=== PATIENT | male | born 1965 | race Caucasian/White ===

== ENCOUNTER 2019-10-28 10:56 | Inpatient (IN) ==
--- OUTSIDE RECORDS SUMMARY | 2019-10-28 11:00 | External Medical Summary | Continuity of Care Document ---
:1965 Author Name Konrad M.D. 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 Refills: 0 Ventolin HFA 108 (90 Base) MCG/ACT Inhal ation Aerosol Solution; INHALE 2 PUFFS EVERY 4-6 HOURS NEEDED. , M.D. Refills: 0 PriLOSEC 20 MG CPDR; TAKE 1 CAPSULE DAILY. , M.D. Refills: 0 Singulair 10 MG Oral Tablet; TAKE 1 TABLET DAILY. , M.D. Refills: 0 Nasonex 50 MCG/ACT Nasal Suspension; INSTILL 2 SQUIRT Each Nostril Once Daily , M.D. Refills: 0 Procedures Procedures not documented Immunizations Immunizations not documented Family History Unknown Family Member Family history of No Significant Family Status: Active Comments: Family History History Social History - Smoking Status Never smoked tobacco Plan of Treatment Planned Observations Planned Goals not documented Results No Known Results Results not documented
[2019-10-28 11:28] LABS: Basophils # (auto) 0.03 K/uL (0-0.2); Basophils % (auto) 0.5 %; Eosinophils # (auto) 0.27 K/uL (0-0.5); Eosinophils % (auto) 4.4 %; Hematocrit (blood only) 34.9 % (42-52); Hemoglobin 10.8 g/dL (14.0-18.0); Immature Granulocytes # (auto) 0.02 K/uL (0.00-0.02); Immature Granulocytes % (auto) 0.3 %; Lymphocytes # (auto) 1.13 K/uL (1.2-3.4); Lymphocytes % (auto) 18.3 %; Mean Corpuscular Hemoglobin 22.3 pg (25-34); Mean Corpuscular Hgb Conc 30.9 g/dL (32-36); Mean Platelet Volume 8.5 fL (7.4-10.4); Monocytes # (auto) 0.28 K/uL (0.11-0.59); Monocytes % (auto) 4.5 %; Neutrophils # (auto) 4.43 K/uL (1.4-6.5); Platelet Count 599 K/uL (130-400); RDW Coefficient of Variation 17.9 % (11.5-14.5); Red Blood Count 4.85 M/uL (4.7-6.1); White Blood Count 6.16 K/uL (4.8-10.8)
--- NOTE | 2019-10-28 11:32 | XRay Report ---
XR chest 1V portable CLINICAL HISTORY: 53 years-old Male presenting with Chest Pain. TECHNIQUE: Portable upright AP view of the chest was obtained. COMPARISON: Outside chest CT from 10/24/2019 and chest x-rays from 10/20/2019 and 04/22/2019. FINDINGS: Cardiomediastinal silhouette normal. Redemonstration of the right middle lobe mass with surrounding o pacity, which is stable to slightly increased from prior. Lower lung volume on the right. Left lung a nd pleural space clear. Osseous structures normal. Hiatal hernia noted. IMPRESSION: 1. Stable to slightly increased infiltrate surrounding the right middle lobe mass. This is concernin g for postobstructive pneumonia. ACT 112: Negative or not required by law. Electronically signed by: Pato Hernandez M.D. 10/28/2019 11:31 AM
[2019-10-28] MEDS ORDERED: SODIUM CHLORIDE 0.9% 1000ML 1,000 ML IV ONE (11:36)
[2019-10-28 11:45] LABS: Alanine Aminotransferase 48 U/L (12-78); Albumin Level 2.9 gm/dl (3.4-5.0); Aspartate Aminotransferase 22 U/L (15-37); BUN Creatinine Ratio 8.3 (10-20); Blood Urea Nitrogen 9 mg/dl (7-18); Calcium 9.4 mg/dl (8.5-10.1); Carbon Dioxide 26 mmol/L (21-32); Chloride 106 mmol/L (98-107); Creatinine Clr Calc Pharmacy 87.1 ml/min; Est GFR (African American) 92.4; Est GFR (Non-African American) 79.7; Glucose 151 mg/dl (70-99); Lipase 91 U/L (73-393); Potassium 3.3 mmol/L (3.5-5.1); Sodium 137 mmol/L (136-145)
[2019-10-28 11:50] LABS: Albumin Globulin Ratio 0.6 (0.9-2); Alkaline Phosphatase 90 U/L (45-117); Bilirubin,Total 0.2 mg/dl (0.2-1); Globulin 4.5 gm/dl (2.5-4.0); Total Protein 7.4 gm/dl (6.4-8.2); Troponin I < 0.015 ng/ml (0-0.045)
[2019-10-28 11:54] LABS: Microcytosis Present
[2019-10-28 11:57] LABS: INR 1.1 (0.9-1.1); Partial Thromboplastin Ratio 1.1; Partial Thromboplastin Time 29.6 Seconds (21.0-31.0); Prothrombin Time 11.9 Seconds (9.0-12.0)
[2019-10-28] MEDS ORDERED: VANCOMYCIN HCL 1,750 MG in SODIUM CHLORIDE 0.9% 500 ML IV ONE (12:22)
[2019-10-28] MEDS ORDERED: PIPERACILL/TAZOBAC CONSULT ACTIVE PRN (12:22)
[2019-10-28] MEDS ORDERED: PIPERACILLIN/TAZOBACTAM 4.5 GM/120 ML BAG IV ONE (12:22)
[2019-10-28] MEDS ORDERED: VANCOMYCIN CONSULT ACTIVE PRN (12:22)
[2019-10-28 12:38] LABS: Influenza A virus by PCR Neg for Influ A (Neg); Influenza B virus by PCR Neg for Influ B (Neg)
[2019-10-28] MEDS ORDERED: ALBUTEROL 0.083% NEBU SOLN 3 ML VIAL NEB STA (12:40)
[2019-10-28] MEDS ORDERED: POTASSIUM CHLORIDE 20 MEQ TABCR PO STA (12:46)
--- NOTE | 2019-10-28 12:52 | History & Physical Report ---
Date of Service October 28, 2019 Assessment & Plan (1) Mass of middle lobe of right lung: (2) Pneumonia: This is a 53-year-old male who has significant PMH of asthma, allergic rhinitis and GERD who presents to ED at the recommendation of his PCP secondary to abnormal chest CAT scan. CT Chest 10/23: 1. An ill-defined hypodense mass in the right middle lobe measuring 5.0 x 3.4 cm. The differential diagnosis includes a pulmonary mass or an abscess. Further evaluation with a PET-CT is suggested. 2. Adjacent large right middle lobe pulmonary consolidation, favoring infection. 3. Trace right pleural effusion. 4. Multiple mildly enlarged mediastinal and right hilar lymph nodes, increased in size since the prior chest CT dated 05/29/2011, may represent metastases or reactive lymphadenopathy depending on the etiology of the finding in the right middle lobe. No signs of SIRS/SEPSIS per current CMS guidelines. LACTIC Acid 2.7. Procal WNL, WBC WNL RML Mass with concerning findings of post obstructive PNA with mediastinal and hilar adenopathy DDx: malignancy, lung abscess, empyema, rheumatologic process admit to PCU IV antibiotics Vanco/zosyn Sputum culture as outpt growing moderate gram-positive cocci, gram-negative and gram-positive rods MRSA pending NPO until seen and eval by pulm consult pulmonology - PCP Dr. Flores spoke with Dr. Ruvalcaba who discussed possible BAL IVF 125cc/hr (3) Lactic acidosis: LA 2.7 pt is normotensive, gap 5.0 continue IVF, repeat (4) Hypokalemia: replete with 40meq x 1 now repeat in a.m. (5) Microcytic anemia: H&H 10.8 and 34.9 No signs or symptoms of bleeding Indices revealed microcytosis Iron studies pending, patient states he has been told he has been he has been iron deficient in past last colonoscopy 2016 revealed diverticulosis no polyps check FOBT (6) Thrombocytosis: possibly reactive in setting of microcytic anemia vs infectious process, vs m alignancy Platelet count [address] 02/2019 was 268 check peripheral smear (7) Asthma: no acute exac albuterol prn continue theophylline, pt has been on since, "10 yrs old" (8) GERD (gastroesophageal reflux disease): continue PPI (9) DVT prophylaxis: SCD/TEDS consider chemical prophylaxis if hospitalized > 24hr Disposition: admit to PCU Follow up: PCP Dr. Flores Pt was seen and examined in collaboration with Dr. Leger, please see addendum History of Present Illness Chief Complaint: Referred by PCP Due to abn CT of chest. Primary Care Provider: Duncan Flores MD This is a 53-year-old male who has significant PMH of asthma, allergic rhinitis and GERD who presents to ED at the recommendation of his PCP secondary to abnormal chest CAT scan. Over the past 2 weeks patient has been experiencing fever, productive purulent cough, THORNTON and conversational dyspnea. Overall appetite has been decreased and has approximately lost 10 pounds over the past 2 weeks. He denies any chills, sweats, lightheadedness, dizziness, chest pain, palpitations, hemoptysis, nausea, vomiting, abdominal pain, changes bowel or urinary habits. He initially was seen by PA at outpatient office. Symptoms initially felt to be secondary to viral and he was encouraged to use albuterol as needed. Albuterol does help temporarily. He then followed up with PCP and started on azithromycin for continued symptoms. He was scheduled for chest CT on 10/23 which revealed an ill-defined hypodense mass in the right middle lobe measuring 5 x 3.4 cm. Also adjacent large right middle lobe consolidation favoring infection. Mildly enlarged mediastinal and right hilar lymph nodes noted. He was then started on Levaquin and additionally Augmentin. Arlin did reach out to ask a doc pulmonology in [place]. Recommendation was for bronchoscopy however patient request to see [facility] pulmonology. Dr. Flores spoke with Dr. Ruvalcaba who recommended ED evaluation with admission. In ED patient remained hemodynamically stable saturating well on room air. H&H around 10.8 and 34.9 with decreased MCV and MCH concerning for macrocytosis, platelet count 599, WBC 6.16, K3.3, BUN 9, creatinine 1.06, glucose 151, lactate 2.7, troponin WNL and negative for influenza. Chest x-ray revealed stable to slightly increased infiltrate surrounding the right middle lobe mass concerning for postobstructive pneumonia. In ED he was started on IV vancomycin and Zosyn and received 1 L fluid bolus. Allergies Allergy/AdvReac Type Severity Reaction Status Date / Time No Known Allergies Allergy Unverified 10/28/19 11:56 Home Medications Home Medications Medication Instructions Recorded Confirmed Type acetaminophen [Tylenol Extra 500 mg PO Q6H PRN 10/28/19 10/28/19 History Strength] albuterol sulfate [Ventolin HFA] 2 puff INHALATION QID PRN 10/28/19 10/28/19 History amoxicillin-pot clavulanate 1 tab PO BID 10/28/19 10/28/19 History cetirizine [Zyrtec] 10 mg PO QAM 10/28/19 10/28/19 History levofloxacin 750 mg PO QAM 10/28/19 10/28/19 History montelukast 10 mg PO QAM 10/28/19 10/28/19 History vvwndjwh-egc-byiuo-vit K-lycop 1 tab PO QAM 10/28/19 10/28/19 History [Men's One Daily] omeprazole 20 mg PO QAM 10/28/19 10/28/19 History theophylline 400 mg PO BID 10/28/19 10/28/19 History Past Med/Surg History Medical History (Updated 10/28/19 @ 14:30 by Rakan Castle MD) Allergic rhinitis Asthma GERD (gastroesophageal reflux disease) Surgical History (Updated 10/28/19 @ 12:58 by Марина Beatty PA-C) History of colonoscopy Family History (Updated 10/28/19 @ 12:59 by Марина Beatty PA-C) Father Prostate cancer Mother Rheumatoid arthritis Brother Dyslipidemia Social History (Updated 10/28/19 @ 13:00 by Марина Beatty PA-C) Preferred Language: Bulgarian Communication Ability: Effective Cook Ship Required: No Beliefs That Will Affect Care: None marital status: Single Current Living Situation: Alone Other Information That Helps Us Care for You: No Feels Safe at Home: Yes Safety Concerns: Feels Safe At This Time Smoking Status: Never smoker Do You Dip or Chew Tobacco: No ; Second Hand Exposure: No ; Tobacco Cessation Education Requested by Patient: No Hx Alcohol Use: Yes Alcohol type: other Hx Substance Use: No Review of Systems Review of Systems: All systems reviewed & are unremarkable except as noted in HPI & below Physical Exam Physical Exam: Constitutional: WD/WN, M vitals as above, NAD, sitting up in bed, pleasant, conversing dyspnea Head: Normocephalic, Atraumatic Eyes: PERRL, conjunctivae normal, anicteric sclerae ENMT: external ear and nose normal, oropharynx normal Neck: trachea midline, no thyromegaly normal visual inspection Respiratory: normal respiratory effort, lungs clear to auscultation, no wheeze, rales, rhonchi. Normal insp/exp effort, no accessory muscle use Cardiovascular: RRR, no murmur, no edema Vessels: no JVD or carotid bruit Chest: normal inspection of chest Abdomen: normal bowel sounds, soft, nontender, no hepatosplenomegaly Musculoskeletal: no cyanosis or clubbing, extremities motor strength 5/5 Skin: no rashes, warm and dry normal turgor Neurologic: PERRL, EOMI, accommodation nl, no face palsy, no dysarthria CN's II-XI intact bilaterally and moves all extremities Psychiatric: A+Ox3, euthymic affect Lymphatic: no cervical or axillary lymphadenopathy : deferred Results & Data Vital Signs (Past 12 Hours) Vital Signs Temp Pulse Pulse Resp BP BP Pulse Ox 10/28/19 12:30 91 H 15 136/82 100 10/28/19 12:11 37.0 C 88 14 138/78 100 10/28/19 10:58 36.7 C 98 H 16 129/79 99 Laboratory Results Short CBC 10/28/19 10/28/19 Range/Units 11:16 11:50 WBC 6.16 (4.8-10.8) K/uL Hgb 10.8 L (14.0-18.0) g/dL Hct 34.9 L (42-52) % Plt Count 599 H (130-400) K/uL Lactate 2.7 H* (0.4-2.0) mmol/L BMP 10/28/19 11:16 Sodium 137 Potassium 3.3 L Chloride 106 Carbon Dioxide 26 BUN 9 Creatinine 1.06 Glucose 151 H Calcium 9.4 Cardiac Enzymes 10/28/19 Range/Units 11:16 Troponin I < 0.015 (0-0.045) ng/ml Liver Function 10/28/19 Range/Units 11:16 Total Bilirubin 0.2 (0.2-1) mg/dl AST 22 (15-37) U/L ALT 48 (12-78) U/L Alkaline Phosphatase 90 (45-117) U/L Albumin 2.9 L (3.4-5.0) gm/dl Diagnostic Findings CT Chest 10/24/19: IMPRESSION 1. An ill-defined hypodense mass in the right middle lobe measuring 5.0 x 3.4 cm. The differential diagnosis includes a pulmonary mass or an abscess. Further evaluation with a PET-CT is suggested. 2. Adjacent large right middle lobe pulmonary consolidation, favoring infection. 3. Trace right pleural effusion. 4. Multiple mildly enlarged mediastinal and right hilar lymph nodes, increased in size since the prior chest CT dated 05/29/2011, may represent metastases or reactive lymphadenopathy depending on the etiology of the finding in the right middle lobe. CXR: IMPRESSION: 1. Stable to slightly increased infiltrate surrounding the right middle lobe mass. This is concerning for postobstructive pneumonia. Medications Administered Vancomycin HCl 1,750 mg/ (Sodium Chloride) 535 mls @ 200 mls/hr IV NOW ONE Stop: 10/28/19 15:02 Last Admin: 10/28/19 12:55 Dose: 200 mls/hr Documented by: [id number] Sodium Chloride (Nss 1000ml) 1,000 mls @ 125 mls/hr IV .Q8H DERIK Stop: 11/27/19 12:44 Last Admin: 10/28/19 12:56 Dose: 125 mls/hr Documented by: [id number] Discontinued Medications Albuterol (Ventolin 0.083% 2.5mg/3ml) 2.5 mg NEB NOW STA Stop: 10/28/19 12:41 Last Admin: 10/28/19 12:51 Dose: 2.5 mg Documented by: [id number] Sodium Chloride (Nss 1000ml) 1,000 mls @ 999 mls/hr IV .Q1H1M ONE Stop: 10/28/19 12:36 Last Infusion: 10/28/19 12:56 Dose: 0 mls/hr Documented by: [id number] Admin: 10/28/19 11:53 Dose: 999 mls/hr Documented by: [id number] Piperacillin Sod/Tazobactam Sod (Zosyn) 4.5 gm in 120 mls @ 240 mls/hr IV NOW ONE Stop: 10/28/19 12:51 Last Admin: 10/28/19 12:30 Dose: 240 mls/hr Documented by: [id number] Potassium Chloride (Klor-Con M20) 40 meq PO NOW STA Stop: 10/28/19 12:47 Last Admin: 10/28/19 12:55 Dose: 40 meq Documented by: [id number] ECG Rate (beats per minute): 94 Rhythm: normal sinus Findings: + PVC Code Status & VTE Plan Code Status Full Code VTE Prophylaxis Plan VTE Prophylaxis will be ordered: Yes Supervising Physician Co-Signing Physician Notes Attending addendum: The patient was seen and examined in telemetry unit He was admitted from PCPs office with complaints of fever, sweating, shortness of breath and productive yellowish phlegm which has been going on for about more than 2 weeks. No history of hemoptysis He has asthma and GERD has past medical history and he is a non-smoker He has had a remote history of pneumonia affecting the left upper lobe in [address] scan with contrast suggested that could be malignant with left hilar and mediastinal lymphadenopathy. Fortunately repeat CAT scan without contrast 1 03/2011 did show only minimal residual consolidation likely representing scaring. He has been complaining of cough with productive yellow phlegm, shortness of breath and fever with sweating for more than 2 weeks.He finished a course of antibiotic as an outpatient with Levaquin and subsequent addition of Augmentin as advised by tape librarian from [place] and he was evaluated by PCP last Sunday and at that time he was noted to have an abnormal CAT scan and he was admitted to telemetry unit for continuation of care and possible bronchoscopy for the right middle lobe lesion. A CAT scan with contrast did show ill-defined hypodense mass in the right middle lobe measuring 5 x 3.4 cm. Adjacent large right middle lobe pulmonary consolidation favoring infection, trace right pleural effusion and multiple mildly enlarged mediastinal and right hilar lymph nodes increased in size since prior CT of the chest dated 2010. He is admitted with postobstructive pneumonia//pulmonary abscess and to rule out possibility of malignancy. On examination Minimal shortness of breath at rest Denies any pain Hemodynamically stable Chest-bronchial breath sounds with crackles right lung Heart-S1-S2, regular Abdomen-benign Extremities-negative for any edema [employer]-alert, awake and oriented x3. No focal sensory or motor deficit His labs and imaging studies reviewed Started with intravenous vancomycin and Zosyn Appreciate pulmonary input and recommendation Agree with assessment and plan as outlined above by Nikos Leger
[2019-10-28] MEDS: SODIUM CHLORIDE 0.9% 1000ML 1,000 ML IV SCH ×2 (12:56→20:25)
--- NOTE | 2019-10-28 13:03 | Emergency Department Note ---
ED Provider Note NAME: LATONIA DAVIES AGE: 53 SEX: M ARRIVES VIA: Walk-In INFORMANT: Patient, ED PROVIDER(S): Nito Arellano MD CHIEF COMPLAINT: Cough and fevers/referred for abnormal CT scan of the chest. MEDICAL DECISION MAKING: The patient is a pleasant 53-year-old gentleman with a past medical history of acid reflux, asthma who presents emergency department for evaluation and admission for recent CT findings that are suggestive of pulmonary abscess versus mass which occurs in the setting of having cough congestion and feverishness over the past 10 days initially treated with azithromycin followed by Levaquin and now having started Augmentin yesterday. The patient reports he had a CT scan performed on Sunday and results were reviewed today and he was referred to the emergency department. Patient denies any history of similar episodes or k nown risk factors that would put him at risk for abscess development. Specifically he denies any history of immune compromise. He denies any travel to high risk areas of novel coronavirus or contact with any patients with lab confirmed novel coronavirus. On arrival the patient is in no acute distress, afebrile stable vital signs. He has diminished breath sounds in the right lung roldan and is otherwise clear. X-ray redemonstrates the patient's right middle lobe mass with increased infiltrate surrounding. WBC within normal limits., Platelets 599, likely reactive. H/H 10.8/34.9 without prior values for comparison. Chemistry without acidosis. However lactate 2.7. Potassium 3.3 electrolytes and LFTs otherwise unremarkable. Troponin negative/undetectable. Flu negative. Blood cx were drawn and patient was ordered for initial Zosyn and vancomycin given recent sputum cultures growing gram-positive cocci as well as gram-negative bacilli, in the [employer] system. [facility], working with Dr. Leger, [facility] hospitalist, who will evaluate the patient for admission. Triage Nursing notes reviewed and agree them. Additional history obtained from [employer] EMR Prior medical records reviewed Vital Signs: reviewed and remarkable for no significant abnormalities Differential diagnosis: Viral syndrome, otitis, pharyngitis, pneumonia, influenza, meningitis, urinary tract infection, sepsis, bacteremia, as well as other pathologies. ER treatment provided: See Below. Diagnostics interpreted by me: ECG: Sinus rhythm with occasional PVCs, 94 bpm, no ST elevation or depression, QTC 422, QRS 98. Cardiac Monitoring: Sinus rhythm, occasional PVCs, 94 bpm. Laboratory studies: XR chest 1V portable CLINICAL HISTORY: 53 years-old Male presenting with Chest Pain. TECHNIQUE: Portable upright AP view of the chest was obtained. COMPARISON: Outside chest CT from 10/24/2019 and chest x-rays from 10/20/2019 and 04/22/2019. FINDINGS: Cardiomediastinal silhouette normal. Redemonstration of the right middle lobe mass with surrounding opacity, which is stable to slightly increased from prior. Lower lung volume on the right. Left lung and pleural space clear. Osseous structures normal. Hiatal hernia noted. IMPRESSION: 1. Stable to slightly increased infiltrate surrounding the right middle lobe mass. This is concerning for postobstructive pneumonia. Imaging studies: See below Consultation(s): None HPI: The patient is a pleasant 53-year-old gentleman with a past medical history of acid reflux, asthma who presents emergency department for evaluation and admission for recent CT findings that are suggestive of pulmonary abscess versus mass which occurs in the setting of having cough congestion and feverishness over the past 10 days initially treated with azithromycin followed by Levaquin and now having started Augmentin yesterday. The patient reports he had a CT scan performed on Sunday and results were reviewed today and he was referred to the emergency department. Patient denies any history of similar episodes or known risk factors that would put him at risk for abscess development. Specifically he denies any history of immune compromise. He denies any travel to high risk areas of novel coronavirus or contact with any patients with lab confirmed novel coronavirus. ROS: See above HPI for pertinent positives & negatives. A total of 10 systems reviewed and were otherwise negative. PAST MEDICAL HISTORY:See Below PAST SURGICAL HISTORY:See Below FAMILY HISTORY:See Below SOCIAL HISTORY:See Below HOME MEDICATIONS:See Below ALLERGIES:See Below VITALS:See Below PHYSICAL EXAMINATION: GENERAL: Awake, alert, fatigued but relatively well-appearing, in no distress HENT: Normocephalic, atraumatic. Oropharynx with dry mucous membranes and otherwise unremarkable. EYES: Normal conjunctiva. Sclera non-icteric. NECK: Supple. No nuchal rigidity. FROM. No JVD. RESPIRATORY: Diminished in right lung roldan and otherwise clear to auscultation. CARDIAC: Regular rate, normal rhythm. Extremities warm and well perfused. Pulses equal. ABDOMEN: Soft, non-distended. No tenderness to palpation. No rebound or g uarding. No masses. RECTAL: Deferred. MUSCULOSKELETAL: Chest examination reveals no tenderness. The back is symmetrical on inspection without obvious abnormality. There is no CVA tenderness to palpation. No joint edema. LOWER EXTREMITIES: Calves are equal size bilaterally and non-tender. No edema. N o discoloration. NEURO: Normal sensorium. No sensory or motor deficits noted. SKIN: No rash or jaundice noted. 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 Required: No Beliefs That Will Affect Care: None marital status: Single Current Living Situation: Alone Other Information That Helps Us Care for You: No Feels Safe at Home: Yes Safety Concerns: Feels Safe At This Time Smoking Status: Never smoker Do You Dip or Chew Tobacco: No ; Second Hand Exposure: No ; Tobacco Cessation Education Requested by Patient: No Hx Alcohol Use: Yes Alcohol type: other Hx Substance Use: No Results & Data (ED) Vital Signs Vital Signs - 24 hr 10/28/19 10:58 10/28/19 12:11 Temperature 36.7 C 37.0 C Temperature Source Oral Oral Pulse Rate 98 H Pulse Rate [Apical] 88 Respiratory Rate 16 14 Respiratory Effort / Characteristics Non-Labored Spontaneous Blood Pressure 129/79 Blood Pressure [Left Arm] 138/78 Blood Pressure Mean 95 Blood Pressure Mean [Left Arm] 98 Pulse Oximetry 99 100 Oxygen Delivery Method Room Air Room Air Sepsis Recent Fever Within 48 Hours No Sepsis New/Unexplained Change in Mental Status No Sepsis Action Taken by Nursing No Action Required Laboratory Data Attestation: I reviewed the patient's lab results. Result diagrams: 10/28/19 11:16 10/28/19 11:16 Lab Results 10/28/19 10/28/19 10/28/19 Range/Units 11:16 11:16 11:16 WBC 6.16 (4.8-10.8) K/uL RBC 4.85 (4.7-6.1) M/uL Hgb 10.8 L (14.0-18.0) g/dL Hct 34.9 L (42-52) % MCV 72.0 L (80-100) fL MCH 22.3 L (25-34) pg MCHC 30.9 L (32-36) g/dL RDW Std Deviation 47.0 H (36.4-46.3) fL RDW Coeff of Micah 17.9 H (11.5-14.5) % Plt Count 599 H (130-400) K/uL MPV 8.5 (7.4-10.4) fL Immature Gran % (Auto) 0.3 % Neut % (Auto) 72.0 % Lymph % (Auto) 18.3 % Twiggs % (Auto) 4.5 % Eos % (Auto) 4.4 % Baso % (Auto) 0.5 % Immature Gran # (Auto) 0.02 (0.00-0.02) K/uL Neut # (Auto) 4.43 (1.4-6.5) K/uL Lymph # (Auto) 1.13 L (1.2-3.4) K/uL Twiggs # (Auto) 0.28 (0.11-0.59) K/uL Eos # (Auto) 0.27 (0-0.5) K/uL Baso # (Auto) 0.03 (0-0.2) K/uL Microcytosis Present Peripher Smr Path Cons PT 11.9 (9.0-12.0) Seconds INR 1.1 (0.9-1.1) APTT 29.6 (21.0-31.0) Seconds PTT Ratio 1.1 Sodium 137 (136-145) mmol/L Potassium 3.3 L (3.5-5.1) mmol/L Chloride 106 (98-107) mmol/L Carbon Dioxide 26 (21-32) mmol/L Anion Gap 5.0 (3-11) BUN 9 (7-18) mg/dl Creatinine 1.06 (0.6-1.4) mg/dl Est Cr Clr Drug Dosing 87.1 ml/min Est GFR ( Amer) 92.4 Est GFR (Non-Af Amer) 79.7 BUN/Creatinine Ratio 8.3 L (10-20) Glucose 151 H (70-99) mg/dl Lactate (0.4-2.0) mmol/L Calcium 9.4 (8.5-10.1) mg/dl Iron (35-175) mcg/dl TIBC (250-450) mcg/dl Transferrin (200-360) mg/dl Ferritin (8-388) ng/ml Total Bilirubin 0.2 (0.2-1) mg/dl AST 22 (15-37) U/L ALT 48 (12-78) U/L Alkaline Phosphatase 90 (45-117) U/L Troponin I < 0.015 (0-0.045) ng/ml Total Protein 7.4 (6.4-8.2) gm/dl Albumin 2.9 L (3.4-5.0) gm/dl Globulin 4.5 H (2.5-4.0) gm/dl Albumin/Globulin Ratio 0.6 L (0.9-2) Lipase 91 (73-393) U/L Procalcitonin (0-0.5) ng/ml Influenza Type A (PCR) (Neg) Influenza Type B (PCR) (Neg) 10/28/19 10/28/19 10/28/19 Range/Units 11:16 11:21 11:50 WBC (4.8-10.8) K/uL RBC (4.7-6.1) M/uL Hgb (14.0-18.0) g/dL Hct (42-52) % MCV (80-100) fL MCH (25-34) pg MCHC (32-36) g/dL RDW Std Deviation (36.4-46.3) fL RDW Coeff of Micah (11.5-14.5) % Plt Count (130-400) K/uL MPV (7.4-10.4) fL Immature Gran % (Auto) % Neut % (Auto) % Lymph % (Auto) % Twiggs % (Auto) % Eos % (Auto) % Baso % (Auto) % Immature Gran # (Auto) (0.00-0.02) K/uL Neut # (Auto) (1.4-6.5) K/uL Lymph # (Auto) (1.2-3.4) K/uL Twiggs # (Auto) (0.11-0.59) K/uL Eos # (Auto) (0-0.5) K/uL Baso # (Auto) (0-0.2) K/uL Microcytosis Peripher Smr Path Cons PT (9.0-12.0) Seconds INR (0.9-1.1) APTT (21.0-31.0) Seconds PTT Ratio Sodium (136-145) mmol/L Potassium (3.5-5.1) mmol/L Chloride (98-107) mmol/L Carbon Dioxide (21-32) mmol/L Anion Gap (3-11) BUN (7-18) mg/dl Creatinine (0.6-1.4) mg/dl Est Cr Clr Drug Dosing ml/min Est GFR ( Amer) Est GFR (Non-Af Amer) BUN/Creatinine Ratio (10-20) Glucose (70-99) mg/dl Lactate 2.7 H* (0.4-2.0) mmol/L Calcium (8.5-10.1) mg/dl Iron 18 L (35-175) mcg/dl TIBC 294 (250-450) mcg/dl Transferrin 236 (200-360) mg/dl Ferritin 85.6 (8-388) ng/ml Total Bilirubin (0.2-1) mg/dl AST (15-37) U/L ALT (12-78) U/L Alkaline Phosphatase (45-117) U/L Troponin I (0-0.045) ng/ml Total Protein (6.4-8.2) gm/dl Albumin (3.4-5.0) gm/dl Globulin (2.5-4.0) gm/dl Albumin/Globulin Ratio (0.9-2) Lipase (73-393) U/L Procalcitonin < 0.05 (0-0.5) ng/ml Influenza Type A (PCR) (Neg) Influenza Type B (PCR) (Neg) 10/28/19 Range/Units 11:55 WBC (4.8-10.8) K/uL RBC (4.7-6.1) M/uL Hgb (14.0-18.0) g/dL Hct (42-52) % MCV (80-100) fL MCH (25-34) pg MCHC (32-36) g/dL RDW Std Deviation (36.4-46.3) fL RDW Coeff of Micah (11.5-14.5) % Plt Count (130-400) K/uL MPV (7.4-10.4) fL Immature Gran % (Auto) % Neut % (Auto) % Lymph % (Auto) % Twiggs % (Auto) % Eos % (Auto) % Baso % (Auto) % Immature Gran # (Auto) (0.00-0.02) K/uL Neut # (Auto) (1.4-6.5) K/uL Lymph # (Auto) (1.2-3.4) K/uL Twiggs # (Auto) (0.11-0.59) K/uL Eos # (Auto) (0-0.5) K/uL Baso # (Auto) (0-0.2) K/uL Microcytosis Peripher Smr Path Cons PT (9.0-12.0) Seconds INR (0.9-1.1) APTT (21.0-31.0) Seconds PTT Ratio Sodium (136-145) mmol/L Potassium (3.5-5.1) mmol/L Chloride (98-107) mmol/L Carbon Dioxide (21-32) mmol/L Anion Gap (3-11) BUN (7-18) mg/dl Creatinine (0.6-1.4) mg/dl Est Cr Clr Drug Dosing ml/min Est GFR ( Amer) Est GFR (Non-Af Amer) BUN/Creatinine Ratio (10-20) Glucose (70-99) mg/dl Lactate (0.4-2.0) mmol/L Calcium (8.5-10.1) mg/dl Iron (35-175) mcg/dl TIBC (250-450) mcg/dl Transferrin (200-360) mg/dl Ferritin (8-388) ng/ml Total Bilirubin (0.2-1) mg/dl AST (15-37) U/L ALT (12-78) U/L Alkaline Phosphatase (45-117) U/L Troponin I (0-0.045) ng/ml Total Protein (6.4-8.2) gm/dl Albumin (3.4-5.0) gm/dl Globulin (2.5-4.0) gm/dl Albumin/Globulin Ratio (0.9-2) Lipase (73-393) U/L Procalcitonin (0-0.5) ng/ml Influenza Type A (PCR) Neg for Influ A (Neg) Influenza Type B (PCR) Neg for Influ B (Neg) Administered Medications Calcium Carbonate (Tums) 500 mg PO Q6H PRN PRN Reason: Indigestion Stop: 11/27/19 19:00 Last Admin: 10/28/19 19:21 Dose: 500 mg Documented by: [id number] Sodium Chloride (Nss 1000ml) 1,000 mls @ 125 mls/hr IV .Q8H DERIK Stop: 11/27/19 12:44 Last Admin: 10/28/19 20:25 Dose: 125 mls/hr Documented by: [id number] Infusion: 10/28/19 20:25 Dose: 125 mls/hr Documented by: [id number] Admin: 10/28/19 12:56 Dose: 125 mls/hr Documented by: [id number] Piperacillin Sod/Tazobactam (Sod 3.375 gm/ Dextrose) 115 mls @ 28.75 mls/hr IV Q8H DERIK; Protocol Stop: 11/04/19 16:59 Last Infusion: 10/28/19 20:27 Dose: 0 mls/hr Documented by: [id number] Admin: 10/28/19 16:57 Dose: 28.8 mls/hr Documented by: [id number] Theophylline (Theophylline Er) 400 mg PO BID DERIK Stop: 11/27/19 20:59 Last Admin: 10/28/19 20:27 Dose: 400 mg Documented by: [id number] Discontinued Medications Albuterol (Ventolin 0.083% 2.5mg/3ml) 2.5 mg NEB NOW STA Stop: 10/28/19 12:41 Last Admin: 10/28/19 12:51 Dose: 2.5 mg Documented by: [id number] Sodium Chloride (Nss 1000ml) 1,000 mls @ 999 mls/hr IV .Q1H1M ONE Stop: 10/28/19 12:36 Last Infusion: 10/28/19 12:56 Dose: 0 mls/hr Documented by: [id number] Admin: 10/28/19 11:53 Dose: 999 mls/hr Documented by: [id number] Piperacillin Sod/Tazobactam Sod (Zosyn) 4.5 gm in 120 mls @ 240 mls/hr IV NOW ONE Stop: 10/28/19 12:51 Last Infusion: 10/28/19 13:04 Dose: 0 mls/hr Documented by: [id number] Admin: 10/28/19 12:30 Dose: 240 mls/hr Documented by: [id number] Vancomycin HCl 1,750 mg/ (Sodium Chloride) 535 mls @ 200 mls/hr IV NOW ONE Stop: 10/28/19 15:02 Last Infusion: 10/28/19 16:03 Dose: 0 mls/hr Documented by: [id number] Admin: 10/28/19 12:55 Dose: 200 mls/hr Documented by: [id number] Potassium Chloride (Klor-Con M20) 40 meq PO NOW STA Stop: 10/28/19 12:47 Last Admin: 10/28/19 12:55 Dose: 40 meq Documented by: [id number] Blood Pressure Blood Pressure Findings: Normal blood pressure Discharge Plan Visit Data *Final* Discharge Date/Time: 10/28/19 13:00 Chief Complaint: Shortness of Breath/Dyspnea Stated Complaint: PNX SENT FOR IV MEDS ED Provider: Nito Arellano Discharge Problem: Abnormal CT scan of lung, Mass of middle lobe of right lung, Pneumonia, Lactic acidosis Patient Disposition: Admitted As Inpatient Discharge Instructions Interventions: ED Discharge Assessment Last Done: 10/28/19 13:00 Discharge Problem: Pneumonia Qualifiers: Pneumonia type: due to unspecified organism Laterality: right Lung location: middle lobe of lung Qualified Code(s): J18.9 - Pneumonia, unspecified organism
[2019-10-28 13:20] LABS: Ferritin 85.6 ng/ml (8-388)
[2019-10-28] MEDS ORDERED: ACETAMINOPHEN 325 MG TAB PO PRN (14:11)
[2019-10-28] MEDS ORDERED: POLYETHYLENE (MIRALAX) 17 GM PACK PO PRN (14:11)
[2019-10-28] MEDS ORDERED: ONDANSETRON INJ 2 MG/ML 2 ML VIAL IV PRN (14:11)
[2019-10-28] MEDS ORDERED: ALBUTEROL 0.083% NEBU SOLN 3 ML VIAL NEB PRN (14:11)
[2019-10-28] MEDS ORDERED: MAGNESIUM HYDROXIDE SUSP 30 ML UDC PO PRN (14:11)
[2019-10-28] MEDS ORDERED: ALUMINUM/MAGNESIUM SUSP 30 ML UDC PO PRN (14:11)
--- NOTE | 2019-10-28 14:28 | Pulmonary Consultation ---
Date of Consultation October 28, 2019 Assessment & Plan (1) Pneumonia: Impression: 53-year-old male lifelong non-smoker presents for evaluation management of an abnormal CT scan. His chest x-ray had been abnormal in the same area dating back to April 2018. It appears that some of the radi ographic abnormality may be attributable to a potential pseudotumor although there is clear airspace opacity on his CT scan from 10/24/2019. This may represent underlying pneumonia. Cannot exclude neoplastic process although the patient does not have significant risk factors at this point time. Nevertheless is normal white blood cell count and normal procalcitonin would argue against an infectious etiology however his acute presentation and presentation with fevers chills and sweats would potentially be more suggestive. Recommendations: 1. I discussed extensively with the patient at this point time options. We could continue with empiric antimicrobial therapy and short interval follow-up imaging. I also discussed bronchoscopy to exclude any endobronchial lesion although review of the scan does show that the airways appear to be fairly widely patent. We could obtain lower respiratory samples to potentially guide antimicrobial therapy. Biopsies could also be obtained and to potentially exclude malignancy. If this were a lung abscess anywhere infected, cytology may be difficult to interpret as infection can cause what appears to be squamous metaplasia which can often be difficult to differentiate from actual malignancy. After thoughtful consideration and discussion the patient has elected to pursue a conservative approach at this point time. He would like to continue with antibiotics and clinical follow-up including short interval CT scan which I think is reasonable. Zosyn appears appropriate while the patient is an inpatient however when he transitions to oral antibiotics would recommend Augmentin or an alternative etiology to provide some anaerobic coverage. Do not think he needs vancomycin. Again the radiographic finding may represent a partial pseudotumor with fluid within the fissure which may account for lack of white blood cell count21 2. I will continue to follow with this patient during his inpatient course. If he changes his mind and elects to pursue bronchoscopy, we can likely schedule this within 12 to 24hours. Otherwise he may be eligible to be dismissed home in the next few days with outpatient clinical follow-up Discussed extensively with patient at bedside. Questions were answered to the best my ability. We will continue to follow. (2) Abnormal CT scan of lung: (3) Lactic acidosis: History of Present Illness Attending Physician: Alexa Leger MD History of Present Illness Asked by hospitalist to evaluate this patient with an abnormal CT scan. History is obtained from discussion with the patient and review of the EMR. Patient is a 53-year-old male who underwent prior bronchoscopy for pulmonary infiltrates back in 1999. Those findings were unrevealing. He is a lifelong non-smoker. He does state that he develops recurrent episodes of pneumonia and has had frequent episodes of bronchitis. He developed a similar episode of bronchitis about 2 weeks ago. He had cough and subjective fevers. He saw his primary care provider and reports that he had a temperature up over 101. He was initially advised that this was viral and supportive care was prescribed however he did not improve after few days and then was prescribed azithromycin which he took for 5 days. He states this was not really effective in making him any better. He was prescribed Augmentin which she started yesterday. He also had a CT scan performed on the and followed up with his primary care provider. There was initial discussion that this may represent a lung abscess versus malignancy. Apparently his primary care provider was in discussion with the pulmonology team at [facility]. Somehow the patient was referred to the emergency room here and admitted for IV antibiotics. He is been placed on Zosy n. The patient does report that he has had a intermittently productive cough. He is not had any hemoptysis. He has lost about 10 pounds. Prior to this acute illness 2 weeks ago he was feeling quite well. There is no significant family history of lung cancer. He has not had any significant occupational or environmental exposures. 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 No TB exposures. No significant lower extremity edema or palpitations. Allergies Allergy/AdvReac Type Severity Reaction Status Date / Time No Known Allergies Allergy Unverified 10/28/19 11:56 Home Medications Home Medications Medication Instructions Recorded Confirmed Type acetaminophen [Tylenol Extra 500 mg PO Q6H PRN 10/28/19 10/28/19 History Strength] albuterol sulfate [Ventolin HFA] 2 puff INHALATION QID PRN 10/28/19 10/28/19 History amoxicillin-pot clavulanate 1 tab PO BID 10/28/19 10/28/19 History cetirizine [Zyrtec] 10 mg PO QAM 10/28/19 10/28/19 History levofloxacin 750 mg PO QAM 10/28/19 10/28/19 History montelukast 10 mg PO QAM 10/28/19 10/28/19 History eohbweke-rlj-yyhha-vit K-lycop 1 tab PO QAM 10/28/19 10/28/19 History [Men's One Daily] omeprazole 20 mg PO QAM 10/28/19 10/28/19 History theophylline 400 mg PO BID 10/28/19 10/28/19 History Patient History Medical History (Updated 10/28/19 @ 14:30 by Rakan Castle MD) Allergic rhinitis Asthma GERD (gastroesophageal reflux disease) Surgical History (Updated 10/28/19 @ 12:58 by Марина Beatty PA-C) History of colonoscopy Family History (Updated 10/28/19 @ 12:59 by Марина Beatty PA-C) Father Prostate cancer Mother Rheumatoid arthritis Brother Dyslipidemia Social History (Updated 10/28/19 @ 13:00 by Марина Beatty PA-C) Preferred Language: Japanese Communication Ability: Effective Criminal Legal Assistant Required: No Beliefs That Will Affect Care: None marital status: Single Current Living Situation: Alone Other Information That Helps Us Care for You: No Feels Safe at Home: Yes Safety Concerns: Feels Safe At This Time Smoking Status: Never smoker Do You Dip or Chew Tobacco: No ; Second Hand Exposure: No ; Tobacco Cessation Education Requested by Patient: No Hx Alcohol Use: Yes Alcohol type: other Hx Substance Use: No Review of Systems Review of Systems: See HPI. No additions or deletions Physical Exam Constitutional: WD/WN, vitals as above Neck: trachea midline, no thyromegaly Respiratory: normal respiratory effort, lungs clear to auscultation Cardiovascular: RRR, no murmur, no edema Gastrointestinal (Abdomen): normal bowel sounds, soft, nontender, no hepatosplenomegaly Musculoskeletal: Extremities: extremities normal to inspection Skin: no rashes, warm and dry Neurologic: Nonfocal exam Lymphatic: no cervical lymphadenopathy Results & Data ([facility]) Vital Signs (Past 12 Hours) Vital Signs Temp Pulse Pulse Resp BP BP Pulse Ox 10/28/19 13:00 87 14 125/73 99 10/28/19 12:51 83 14 100 10/28/19 12:30 91 H 15 136/82 100 10/28/19 12:11 37.0 C 88 14 138/78 100 10/28/19 10:58 36.7 C 98 H 16 129/79 99 Laboratory Results 10/28/19 11:16 10/28/19 11:16 Procalcitonin undetectable Lactic acid elevated at 2.7 Diagnostic Findings Chest x-ray from today was independently reviewed. There is a small area of defined density within the right midlung zone. This area does not appear significantly changed compared to prior chest x-ray from 04/22/2019 CT of the chest from 10/24/2019 at [facility] was independently reviewed. There is airspace opacity within the lateral segment of the middle lobe with some associated adenopathy in the right hilum and pretracheal and subcarinal regions. Differential diagnosis would include infection, lung abscess, or malignancy. There does appear to be a component of pseudotumor with fluid loculated within the minor fissure. PG Care Time/CCT Total # of Minutes Spent Total Time Spent with Patient: Total time spent is greater than 50% in coordination of care (as documented) at patient's floor/unit and/or counseling patient: Coding Level of Care Code 68864 Inpt Consult Level 4 Diagnoses Pneumonia J18.[address] scan of lung R91.8 Lactic acidosis E87.2
--- NOTE | 2019-10-28 14:32 | Electrocardiogram Report ---
Test Reason : Blood Pressure : / mmHG Vent. Rate : 094 BPM Atrial Rate : 094 BPM P-R Int : 152 ms QRS Dur : 098 ms QT Int : 338 ms P-R-T Axes : 039 -20 018 degrees QTc Int : 422 ms Sinus rhythm with occasional Premature ventricular complexes Otherwise normal ECG When compared with ECG of 01-DEC-2010 06:26, Premature ventricular complexes are now Present Incomplete right bundle branch block is no longer Present Confirmed by Dann Mckeon ([id number]) on 10/28/2019 2:32:01 PM Referred By: Confirmed By:Dominick Mckeon
--- NOTE | 2019-10-28 14:46 | Pharmacy Report ---
Pharmacy Abx Initial Consult - Date of Service October 28, 2019 - Pharmacy Dosing Scope Date of Consult: 10/28/19 Consultation requested by: Марина Beatty PA-C Pharmacy is consulted to initiate vancomycin and Zosyn IV dosing therapy, order appropriate labs and adjust drug dose/frequency. - Subjective The patient is a 53 year old M admitted on 10/28/19 12:15. - Objective Height: 5 ft 9 in Weight: 85 kg Vital Signs (Past 12hrs): Vital Signs Temp Pulse Pulse Resp BP BP Pulse Ox 10/28/19 14:21 36.9 C 88 22 147/76 H 99 10/28/19 13:00 87 14 125/73 99 10/28/19 12:51 83 14 100 10/28/19 12:30 91 H 15 136/82 100 10/28/19 12:11 37.0 C 88 14 138/78 100 10/28/19 10:58 36.7 C 98 H 16 129/79 99 Lab Results (24hrs): Laboratory Tests (24 Hours) 10/28/19 10/28/19 10/28/19 11:21 11:16 11:16 WBC 6.16 Neut # (Auto) 4.43 Creatinine 1.06 Est Cr Clr Drug Dosing 87.1 Procalcitonin < 0.05 Micro Results: 10/28/19 11:50 Aerobic Blood Culture - Pending Blood Anaerobic Blood Culture - Pending 10/28/19 11:50 Aerobic Blood Culture - Pending Blood Anaerobic Blood Culture - Pending - Assessment & Plan Assessment 53 year old M ordered empiric vancomycin and Zosyn for treatment of pneumonia. Chest x-ray revealed stable to slightly increased infiltrate surrounding a right middle lobe mass. Outpatient course: Chest CT on 10/23 revealed hypodense mass in right middle lobe - pulmonary mass vs. abscess. Of note, patient is a lifelong non-smoker. Prior to admission patient complained of fever, productive/purulent cough, increasing shortness of breath. He failed multiple outpatient antibiotics recently including levofloxacin, amoxicillin/clavulanate, and azithromycin. Outpatient sputum culture grew gram positive cocci, gram negative/positive rods. Labs: MRSA nasal swab ordered. SCr on admission of 1.06 mg/dL - repeat ordered for tomorrow. Procalcitonin undetectable. Micro: Blood cultures x 2: pending, influenza A/B negative Plan Vancomycin * Patient meets criteria for vancomycin AUC dosing nomogram * AUC/CORTNEY is the preferred PK/PD target for vancomycin * Target AUC/CORTNEY = 400-600 * AUC guided dosing is effective and associated with decreased risk of nephrotoxicity Piperacillin/tazobactam * 4.5 g bolus administered over 30 minutes, then 3.375 g IV extended infusion every 8 hours for CrCl greater than 20 mL/min Pharmacy will continue to follow and will adjust dose/frequency as necessary. Thank you.
[2019-10-28] MEDS: PIPERACILLIN/TAZOBACTAM 3.375 GM in DEXTROSE 5% 100 ML IV SCH (16:57)
[2019-10-28] MEDS ORDERED: SODIUM CHLORIDE 0.9% 500 ML IV SCH (17:15)
[2019-10-28] MEDS ORDERED: PIPERACILLIN/TAZOBACTAM 3.375 GM in DEXTROSE 5% 100 ML IV SCH (18:00)
[2019-10-28] MEDS ORDERED: CALCIUM CARBONATE 500 MG CHEWABLE TAB PO PRN (19:01)
[2019-10-28] MEDS: THEOPHYLLINE 400 MG EXTENDED REL TAB PO SCH (20:27)
[2019-10-28] MEDS ORDERED: VANCOMYCIN HCL 1,000 MG in SODIUM CHLORIDE 0.9% 250 ML IV SCH (21:00)
[2019-10-29] MEDS: PIPERACILLIN/TAZOBACTAM 3.375 GM in DEXTROSE 5% 100 ML IV SCH ×3 (00:30→16:24)
[2019-10-29] MEDS: SODIUM CHLORIDE 0.9% 1000ML 1,000 ML IV SCH ×2 (04:25→12:26)
[2019-10-29 06:39] LABS: Basophils # (auto) 0.02 K/uL (0-0.2); Basophils % (auto) 0.4 %; Eosinophils % (auto) 7.4 %; Hematocrit (blood only) 32.2 % (42-52); Immature Granulocytes # (auto) 0.01 K/uL (0.00-0.02); Immature Granulocytes % (auto) 0.2 %; Lymphocytes # (auto) 1.57 K/uL (1.2-3.4); Lymphocytes % (auto) 28.9 %; Mean Corpuscular Hemoglobin 22.3 pg (25-34); Mean Corpuscular Hgb Conc 31.1 g/dL (32-36); Mean Corpuscular Volume 71.7 fL (80-100); Mean Platelet Volume 8.7 fL (7.4-10.4); Monocytes # (auto) 0.43 K/uL (0.11-0.59); Monocytes % (auto) 7.9 %; Neutrophils % (auto) 55.2 %; Platelet Count 548 K/uL (130-400); RDW Coefficient of Variation 18.3 % (11.5-14.5); RDW Standard Deviation 47.8 fL (36.4-46.3); Red Blood Count 4.49 M/uL (4.7-6.1); White Blood Count 5.43 K/uL (4.8-10.8)
[2019-10-29 07:27] LABS: BUN Creatinine Ratio 7.3 (10-20); Calcium 9.3 mg/dl (8.5-10.1); Creatinine Clr Calc Pharmacy 112.8 ml/min; Potassium 4.3 mmol/L (3.5-5.1)
[2019-10-29] MEDS: MONTELUKAST SODIUM 10 MG TABLET PO SCH (07:45)
[2019-10-29] MEDS: CEROVITE ADV FORMULA TAB PO SCH (07:45)
[2019-10-29] MEDS: PANTOprazole 40 MG TAB PO SCH (07:45)
[2019-10-29] MEDS: CETIRIZINE HCL 10 MG TABLET PO SCH (07:45)
[2019-10-29] MEDS: THEOPHYLLINE 400 MG EXTENDED REL TAB PO SCH ×2 (07:45→21:01)
[2019-10-29 07:51] LABS: Estimated Average Glucose 123 mg/dl; Hemoglobin A1C 5.9 % (4.5-5.6)
--- NOTE | 2019-10-29 11:09 | Pre Anesthesia Assessment ---
Date of Service October 29, 2019 Pre Sedation Assessment Vital Signs Temp Pulse Pulse Resp BP BP BP 10/29/19 11:05 69 18 160/89 H 10/29/19 11:04 16 157/89 H 10/29/19 10:59 61 23 148/88 H 148/88 H 10/29/19 09:30 53 L 10/29/19 02:29 36.4 C L 62 18 125/73 10/28/19 23:44 62 10/28/19 23:24 36.6 C 77 18 122/77 10/28/19 19:41 36.7 C 77 18 158/81 H 10/28/19 19:04 86 10/28/19 15:40 36.5 C 61 18 137/77 10/28/19 14:21 36.9 C 88 22 147/76 H 10/28/19 13:00 87 14 125/73 10/28/19 12:51 83 14 10/28/19 12:30 91 H 15 136/82 10/28/19 12:11 37.0 C 88 14 138/78 Pulse Ox 10/29/19 11:05 100 10/29/19 11:04 100 10/29/19 10:59 100 10/29/19 09:30 10/29/19 02:29 99 10/28/19 23:44 10/28/19 23:24 96 10/28/19 19:41 100 10/28/19 19:04 10/28/19 15:40 99 10/28/19 14:21 99 10/28/19 13:00 99 10/28/19 12:51 100 10/28/19 12:30 100 10/28/19 12:11 100 Pre-Sedation Airway Assessment Smoking Status: Never smoker Hx Sleep Apnea: No Short, Thick Neck: No Thyromental Distance: > or= 3.5 Finger Breadths Oral Cavity: + WNL Mallampati Class: II ASA: ASA2 NPO Status Date of Last Intake of Fluids: 10/28/19 Time of Last Intake of Fluids: 22:30 Date of Last Intake of Solid Food: 10/28/19 Time of Last Intake of Solid Foods: 22:30 Notes The planned sedation has been discussed with the patient. Informed Consent was obtained. I have identified the patient, determined the appropriateness of sedation and have assessed the patient immediately prior to the procedure. All medicine(s) and interventions are by my order.
--- NOTE | 2019-10-29 11:09 | History & Physical Bridge Note ---
Date of Service October 29, 2019 History & Physical Bridge Note I have examined the patient, reviewed the History & Physical and in the interval since the performance of the History & Physical I have noted the following changes of clinical significance: no changes noted
[2019-10-29] MEDS ORDERED: LIDOCAINE HCL VISCOUS SOLN 2% 15 ML UDC TOP ONE (11:57)
[2019-10-29] MEDS ORDERED: OXYMETAZOLINE 0.05% 30 ML BTL ONE (11:57)
[2019-10-29] MEDS ORDERED: fentaNYL citrate 100 MCG/2 ML VIAL IV ONE (11:57)
[2019-10-29] MEDS ORDERED: MIDAZOLAM HCL 1 MG/ML 2ML VIAL IV STA (11:57)
[2019-10-29] MEDS ORDERED: LIDOCAINE HCL 2% (LOCAL) INJ 50 ML VIAL INSTIL ONE (11:57)
--- NOTE | 2019-10-29 11:59 | Post Anesthesia Assessment ---
Date of Service October 29, 2019 Post Sedation Assessment Vital Signs Temp Pulse Pulse Resp BP BP BP 10/29/19 11:50 74 18 112/69 10/29/19 11:45 71 18 109/69 10/29/19 11:40 60 16 108/63 10/29/19 11:35 71 16 105/77 10/29/19 11:30 66 18 123/73 10/29/19 11:25 59 L 16 122/75 10/29/19 11:20 61 14 139/88 10/29/19 11:15 55 L 18 153/83 H 10/29/19 11:10 60 18 153/87 H 10/29/19 11:05 69 18 160/89 H 10/29/19 11:04 16 157/89 H 10/29/19 10:59 61 23 148/88 H 148/88 H 10/29/19 09:30 53 L 10/29/19 02:29 36.4 C L 62 18 125/73 10/28/19 23:44 62 10/28/19 23:24 36.6 C 77 18 122/77 10/28/19 19:41 36.7 C 77 18 158/81 H 10/28/19 19:04 86 10/28/19 15:40 36.5 C 61 18 137/77 10/28/19 14:21 36.9 C 88 22 147/76 H 10/28/19 13:00 87 14 125/73 10/28/19 12:51 83 14 10/28/19 12:30 91 H 15 136/82 10/28/19 12:11 37.0 C 88 14 138/78 Pulse Ox 10/29/19 11:50 99 10/29/19 11:45 97 10/29/19 11:40 97 10/29/19 11:35 100 10/29/19 11:30 100 10/29/19 11:25 100 10/29/19 11:20 100 10/29/19 11:15 100 10/29/19 11:10 100 10/29/19 11:05 100 10/29/19 11:04 100 10/29/19 10:59 100 10/29/19 09:30 10/29/19 02:29 99 10/28/19 23:44 10/28/19 23:24 96 10/28/19 19:41 100 03/24/20 19:04 10/28/19 15:40 99 10/28/19 14:21 99 10/28/19 13:00 99 10/28/19 12:51 100 10/28/19 12:30 100 10/28/19 12:11 100 Discharge Sedation Level of Care: Fast Track Phase II Post Sedation Plan On clinical assessment, the patient appears to have tolerated the sedation without complications. Patient is recovering as anticipated. Patient will continue to be monitored by nursing and may be discharged when sedation discharge criteria are met per below protocol. Upon Completions of procedure up to 15 minutes continue every 5 minute vital signs and the P.A.R. score; then discharge to a Phase I or Fast Track to Phase II per the following guidelines: * Discharge Patient to appropriate Phase II area if PAR is 8 or greater or return to pre- procedure baseline. The post - procedure orders will be as directed. * If PAR score is less than 8 or not return to pre-procedure baseline then patient will follow Phase I monitoring till PAR is reached for Phase II. The Phase I may be done in procedure room or may call to secure a Phase I area. * If naloxone or flumazenil are used for reversal, hold in Phase I for continued monitoring from when last reversal dose was given for a minimum of 60 minutes or longer pending the nurse and/or physician discretion of patient condition before discharge to Phase II. Please call the Sedation Physician to re-evaluate and complete post-note for discharge to Phase II area. Do NOT discharge from procedure sedation or Phase 1 until post- sedation evaluation note is complete by procedure /sedation MD Sedation Discharge Instructions to be given to the patient at discharge to home.
--- NOTE | 2019-10-29 12:06 | Procedure Note ---
Procedure Note: Bronchoscopy Procedure Procedure: Fiberoptic bronchoscopy Endobronchial ultrasound evaluation during bronchoscopy Endobronchial ultrasound with transbronchial needle aspiration of lymph nodes Bronchoalveolar lavage Endobronchial brushing without fluoroscopic guidance Conscious sedation Provider: Rakan Castle MD Consent: Signed by patient and timeout verified prior to procedure. Sedation start: 1109 Sedation end: 1155 Conscious sedation: 350 mcg fentanyl, 14 mg Versed, and topical lidocaine per RT protocol Procedure: Patient was brought to the bronchoscopy suite. Consent was verified. Appropriate radiographic studies had been reviewed prior to the procedure. Standard monitoring was applied. Oxygen was administered. After topical anesthesia of the airways per respiratory therapy protocol, the fiberoptic scope was advanced through the oropharynx by the bite-block. Oropharynx was unremarkable. Vocal cords were visualized and were normal in function and appearance. Topical anesthesia of the cords was achieved with instillation of lidocaine through the scope. Scope was then passed through the vocal cords. The trachea was slightly tortuous. Main romy was slightly splayed. Anesthesia of the lower airways was achieved with instillation of lidocaine through the scope. A sequential and systematic examination of the lower airways was conducted. The right-sided airways were patent however there was a significant fishmouth deformity of the right middle lobe. I was able to pass the scope beyond this fishmouth orifice and the distal airways appeared widely patent. The mucosa appeared normal. Left-sided airways were patent and the mucosa appeared normal. Once the inspection bronchoscopy was completed, the scope was advanced into the lateral segment of the right middle lobe. Again no purulence was identified. Brushings were taken in the lateral segment of the right middle lobe and examined under real-time cytology guidance. No obvious abnormality was identified. Minimal bleeding was encountered which was self-limited. The scope was then again wedged into the lateral segment of the right middle lobe and a BAL was performed with instillation of 3 aliquots of 60 mL sterile saline. Return was slightly cloudy but not overtly purulent and did not appear hemorrhagic. The fiberoptic scope was then withdrawn and the endobronchial ultrasound was advanced via the bite-block through the airways. A systematic inspection of lymph node stations 2R, 2L, 4R, 4L, 7, and 10/11 R and L was undertaken. Small lymph nodes were identified in the 4R, 7, and 10 R stations. Using a 21-gauge needle and under direct ultrasound visualization, lymph node sampling was undertaken in level 7 station as well as 10 R station. Rapid onsite cytologic evaluation confirmed lymphocytes but no malignancy was identified. The bronchoscope was then removed from the airways. The patient tolerated the procedure well without obvious complication. Patient was returned to the recovery room. Impression: 1. 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 2. Brushing and BAL of lateral segment of right middle lobe with cytology and pathology pending 3. Adenopathy identified in multiple stations as described above. Successful biopsy of level 7 and level 10 R lymph nodes. Await pathology.
--- NOTE | 2019-10-29 12:13 | Pulmonology Progress Note ---
Date of Service October 29, 2019 Assessment & Plan (1) Pneumonia: Impression: 53-year-old male lifelong non-smoker presents for evaluation management of an abnormal CT scan. His chest x-ray had been abnormal in the same area dating back to April 2018. The patient initially wanted to pursue a conservative approach however after consideration he elected to pursue bronchoscopy which was accomplished today. Differential diagnosis remains pseudotumor, pneumonia, and potentially malignancy as well as non-malignant inflammatory condition such as organizing pneumonia. Recommendations: 1. Abnormal CT scan: After discussion the patient elected to pursue bronchoscopy. This was completed today. Await microbiologic and cytologic analysis. Recommend continuing Zosyn for now. Can transition to Augmentin. He will require close outpatient follow-up with radiographic surveillance. Dur ation of antibiotics will be based on clinical response and radiographic follow- up. May consider ID consultation. 2. No significant purulence encountered in the airways. Again await culture data. 3. It appears from his prior radiographs and CT scan that there may be at least a component of a pseudotumor (loculated fluid in the minor fissure) which may have been causing some of his radiographic abnormalities. This would require surgical intervention to definitively treat and typically does not require definitive treatment. Again follow-up imaging will be bill. We will follow. If the patient is felt stable to dismiss from the hospital, he would be appropriate to discharge from my perspective with outpatient pulmonary follow-up. Laterality: right Lung location: middle lobe of lung Pneumonia type: due to unspecified organism Qualified Code(s): J18.9 - Pneumonia, unspecified organism (2) Abnormal CT scan of lung: (3) Lactic acidosis: Subjective Seen and examined in bronchoscopy suite. No acute issues overnight. He continues to feel well. He is n.p.o. for bronchoscopy. Review of Systems Review of Systems: Unchanged from prior Physical Exam Constitutional: WD/WN, vitals as above ENMT: Mallampati Class: II Neck: trachea midline, no thyromegaly Respiratory: normal respiratory effort, lungs clear to auscultation Cardiovascular: RRR, no murmur, no edema Gastrointestinal (Abdomen): normal bowel sounds, soft, nontender, no hepatosplenomegaly Musculoskeletal: Extremities: extremities normal to inspection Skin: no rashes, warm and dry Lymphatic: no cervical lymphadenopathy Results & Data ([facility]) Vital Signs (Past 12 Hours) Vital Signs Temp Pulse Pulse Resp BP BP Pulse Ox 10/29/19 12:05 74 20 102/62 96 10/29/19 12:00 65 20 104/58 L 98 10/29/19 11:55 62 18 98/58 L 99 10/29/19 11:50 74 18 112/69 99 10/29/19 11:45 71 18 109/69 97 10/29/19 11:40 60 16 108/63 97 10/29/19 11:35 71 16 105/77 100 10/29/19 11:30 66 18 123/73 100 10/29/19 11:25 59 L 16 122/75 100 10/29/19 11:20 61 14 139/88 100 10/29/19 11:15 55 L 18 153/83 H 100 10/29/19 11:10 60 18 153/87 H 100 10/29/19 11:05 69 18 160/89 H 100 10/29/19 11:04 16 157/89 H 100 10/29/19 10:59 61 23 148/88 H 148/88 H 100 10/29/19 09:30 53 L 10/29/19 07:30 36.4 C L 57 L 19 138/81 100 10/29/19 02:29 36.4 C L 62 18 125/73 99 Laboratory Results 10/29/19 05:52 10/29/19 05:52 Diagnostic Findings No new imaging PG Care Time/CCT Total # of Minutes Spent Total Time Spent with Patient: Total time spent is greater than 50% in coordination of care (as documented) at patient's floor/unit and/or counseling patient: Coding Level of Care Code 07309 Subseq Hosp Care Lvl 3 Diagnoses Pneumonia J18.9 Laterality: right Lung location: middle lobe of lung Pneumonia type: due to unspecified organism Abnormal CT scan of lung R91.8 Lactic acidosis E87.2
--- NOTE | 2019-10-29 14:42 | Hospitalist Progress Note ---
Date of Service October 29, 2019 Assessment & Plan (1) Pneumonia: Improved clinically on vancomycin and Zosyn overnight. Continue Zosyn as monotherapy per pulmonology recommendations. Bronchoscopy today without overt purulent material seen. Washings and lymph node biopsies performed. Awaiting results. Patient feels clinically improved overall including no fevers or chills. We discussed him going home today, however in the current clinical environment of limited follow-up appointments and limited PCP availability it was felt prudent to monitor him for another 24 hours watching specifically this new cough that developed this morning, ensuring he remains afebrile and simultaneously allowing another 24 hours of IV antibiotics to penetrate the infection. This will also allow for preliminary results to be conveyed to him quickly and solidify follow-up instructions per his rater associate who is outside of the [facility] system. (2) Hypokalemia: resolved (3) Microcytic anemia: Persistent microcytic anemia, and this is seen on record review since 2016. He is iron deficient and not on current supplementation. Reports from 2016 reveal a screening colonoscopy that was normal. In the setting of acid reflux on medication, it may be prudent to follow-up with GI regarding an upper endoscopy. Defer to primary care doctor for further work-up including possible referral to hematology. We will reinstitute iron supplementation at this time. (4) Thrombocytosis: likely reactive, no further workup needed at this time. (5) Asthma: stable, cont chronic medications. Nebulized bronchodilator available as needed (6) GERD (gastroesophageal reflux disease): Cont PPI per home regimen. (7) DVT prophylaxis: Lovenox Full Code Dispo-likely to home in am. Page Meadows DO [facility] Hospitalist Admission and Anticipated Discharge Date Admission Date: October 28, 2019 Anticipated date of discharge: 10/30/19 Subjective 53-year-old man admitted with a right middle lobe pneumonia. He reports feeling afebrile and no chills with clinical improvement overnight since starting IV antibiotics. Initially was going to opt for conservative management and reimaging however underwent bronchoscopy today. He is post procedure and doing well. He is tolerating p.o. He denies any nausea, vomiting. He denies any shortness of breath and is not currently requiring oxygen. He does report a cough that is started this morning and he feels is related to the IV medications working better to clear the infection. Telemetry revealed asymptomatic bradycardia in the high 30s at the lowest point. Overall his heart rate has been running in the 50s to 70s on average. Review of Systems Review of Systems: All systems reviewed & are unremarkable except as noted in Subjective Physical Exam Physical Exam: CONSTITUTIONAL: WNWD, vitals as above, generally well- appearing EYES: normal conjunctivae, no scleral icterus ENT: external ear and nose normal, oropharynx clear, MMM RESPIRATORY: Overall clear to auscultation with no evidence of wheezes or crackles throughout except for some rales heard in the right middle lobe. Normal respiratory effort CARDIOVASCULAR: regular rate and rhythm, S1 and 2 heard without murmurs, gallops or rubs, no JVD, no peripheral edema GASTROINTESTINAL: soft, nontender, nondistended MUSCULOSKELETAL: head NC/AT, strength intact throughout, moving around independently SKIN: warm and dry NEUROLOGIC: No facial palsy, no dysarthria. CN 2-12 grossly intact, no sensory deficit, normal cognition, normal speech PSYCHIATRIC: alert cooperative and oriented to person, place and time. Results & Data Results & Data ([facility]) Vital Signs (Past 12 Hours) Vital Signs Temp Pulse Pulse Resp BP BP Pulse Ox 10/29/19 12:47 36.4 C L 42 L 18 162/92 H 98 10/29/19 12:15 55 L 120/80 100 10/29/19 12:10 62 20 128/85 98 10/29/19 12:05 74 20 102/62 96 10/29/19 12:00 65 20 104/58 L 98 10/29/19 11:55 62 18 98/58 L 99 10/29/19 11:50 74 18 112/69 99 10/29/19 11:45 71 18 109/69 97 10/29/19 11:40 60 16 108/63 97 10/29/19 11:35 71 16 105/77 100 10/29/19 11:30 66 18 123/73 100 10/29/19 11:25 59 L 16 122/75 100 10/29/19 11:20 61 14 139/88 100 10/29/19 11:15 55 L 18 153/83 H 100 10/29/19 11:10 60 18 153/87 H 100 10/29/19 11:05 69 18 160/89 H 100 10/29/19 11:04 16 157/89 H 100 10/29/19 10:59 61 23 148/88 H 148/88 H 100 10/29/19 09:30 53 L 10/29/19 07:30 36.4 C L 57 L 19 138/81 100 Laboratory Results Short CBC 10/29/19 Range/Units 05:52 WBC 5.43 (4.8-10.8) K/uL Hgb 10.0 L (14.0-18.0) g/dL Hct 32.2 L (42-52) % Plt Count 548 H (130-400) K/uL BMP 10/29/19 05:52 Sodium 141 Potassium 4.3 D Chloride 112 H Carbon Dioxide 26 BUN 6 L Creatinine 0.82 Glucose 94 Calcium 9.3 Diagnostic Findings XR chest 1V portable CLINICAL HISTORY: 53 years-old Male presenting with Chest Pain. TECHNIQUE: Portable upright AP view of the chest was obtained. COMPARISON: Outside chest CT from 10/24/2019 and chest x-rays from 10/20/2019 and 04/22/2019. FINDINGS: Cardiomediastinal silhouette normal. Redemonstration of the right middle lobe mass with surrounding opacity, which is stable to slightly increased from prior. Lower lung volume on the right. Left lung and pleural space clear. Osseous structures normal. Hiatal hernia noted. IMPRESSION: 1. Stable to slightly increased infiltrate surrounding the right middle lobe mass. This is concerning for postobstructive pneumonia. Medications Administered Current Inpatient Medications Acetaminophen (Tylenol) 650 mg PO Q4H PRN PRN Reason: Pain or Fever Stop: 11/27/19 14:10 Al Hydrox/Mg Hydrox/Simethicone (Maalox) 15 ml PO Q4H PRN PRN Reason: Dyspepsia Stop: 11/27/19 14:10 Albuterol (Ventolin 0.083% 2.5mg/3ml) 2.5 mg NEB Q6R PRN PRN Reason: sob/wheezing Stop: 11/27/19 14:10 Calcium Carbonate (Tums) 500 mg PO Q6H PRN PRN Reason: Indigestion Stop: 11/27/19 19:00 Last Admin: 10/28/19 19:21 Dose: 500 mg Documented by: Cetirizine HCl (Zyrtec) 10 mg PO QAM DERIK Stop: 11/28/19 08:59 Last Admin: 10/29/19 07:45 Dose: 10 mg Documented by: Piperacillin Sod/Tazobactam (Sod 3.375 gm/ Dextrose) 115 mls @ 28.75 mls/hr IV Q8H [facility]; Protocol Stop: 11/04/19 16:59 Last Infusion: 10/29/19 14:17 Dose: Infused Documented by: Magnesium Hydroxide (Milk Of Magnesia) 30 ml PO Q12H PRN PRN Reason: Constipation Stop: 11/27/19 14:10 Miscellaneous Information (Consult) 1 ea N/A UD PRN PRN Reason: Consult Stop: 11/27/19 12:21 Montelukast Sodium (Singulair) 10 mg PO QAM [facility] Stop: 11/28/19 08:59 Last Admin: 10/29/19 07:45 Dose: 10 mg Documented by: Multivitamins/Minerals (Multivitamin W/ Minerals Tab) [facility] [place] Stop: 11/28/19 08:59 Last Admin: 10/29/19 07:45 Dose: 1 tab Documented by: Nortriptyline HCl (Pamelor) 10 mg PO HS [facility] Stop: 11/28/19 20:59 Ondansetron HCl (Zofran) 4 mg IV Q6H PRN PRN Reason: Nausea Stop: 11/27/19 14:10 Pantoprazole Sodium (Protonix) 40 mg PO QAM [facility] Stop: 11/28/19 08:59 Last Admin: 10/29/19 07:45 Dose: 40 mg Documented by: Polyethylene Glycol (Miralax Powder Packet) 17 gm PO DAILY PRN PRN Reason: Constipation Stop: 11/27/19 14:10 Theophylline (Theophylline Er) 400 mg PO BID [facility] Stop: 11/27/19 20:59 Last Admin: 10/29/19 07:45 Dose: 400 mg Documented by: (1) Pneumonia Laterality: right Lung location: middle lobe of lung Pneumonia type: due to unspecified organism Qualified Code(s): J18.9 - Pneumonia, unspecified organism
[2019-10-29] MEDS: FERROUS SULFATE 325 MG TAB PO SCH (19:02)
[2019-10-29] MEDS ORDERED: ENOXAPARIN INJ 40 MG/0.4 ML SYR SQ SCH (21:00)
[2019-10-29] MEDS ORDERED: NORTRIPTYLINE HCL 10 MG CAP PO SCH (21:00)
[2019-10-30] MEDS: PIPERACILLIN/TAZOBACTAM 3.375 GM in DEXTROSE 5% 100 ML IV SCH ×2 (00:30→08:05)
[2019-10-30] MEDS ORDERED: VANCOMYCIN TROUGH ONE (04:30)
[2019-10-30 06:58] LABS: Basophils # (auto) 0.03 K/uL (0-0.2); Basophils % (auto) 0.3 %; Eosinophils # (auto) 0.46 K/uL (0-0.5); Eosinophils % (auto) 4.9 %; Hematocrit (blood only) 33.5 % (42-52); Hemoglobin 10.4 g/dL (14.0-18.0); Immature Granulocytes # (auto) 0.02 K/uL (0.00-0.02); Immature Granulocytes % (auto) 0.2 %; Lymphocytes # (auto) 1.73 K/uL (1.2-3.4); Lymphocytes % (auto) 18.6 %; Mean Corpuscular Hemoglobin 22.2 pg (25-34); Mean Corpuscular Volume 71.4 fL (80-100); Mean Platelet Volume 8.7 fL (7.4-10.4); Monocytes % (auto) 6.4 %; Neutrophils # (auto) 6.47 K/uL (1.4-6.5); Neutrophils % (auto) 69.6 %; Platelet Count 568 K/uL (130-400); RDW Coefficient of Variation 18.3 % (11.5-14.5); RDW Standard Deviation 48.1 fL (36.4-46.3); Red Blood Count 4.69 M/uL (4.7-6.1); White Blood Count 9.31 K/uL (4.8-10.8)
[2019-10-30] MEDS: MONTELUKAST SODIUM 10 MG TABLET PO SCH (08:02)
[2019-10-30] MEDS: THEOPHYLLINE 400 MG EXTENDED REL TAB PO SCH (08:02)
[2019-10-30] MEDS: PANTOprazole 40 MG TAB PO SCH (08:02)
[2019-10-30] MEDS: CEROVITE ADV FORMULA TAB PO SCH (08:02)
[2019-10-30] MEDS: FERROUS SULFATE 325 MG TAB PO SCH (08:02)
[2019-10-30] MEDS: CETIRIZINE HCL 10 MG TABLET PO SCH (08:02)
--- NOTE | 2019-10-30 11:25 | Discharge Summary ---
Date of Service October 30, 2019 Admission HPI Per Admitting Provider This is a 53-year-old male who has significant PMH of asthma, allergic rhinitis and GERD who presents to ED at the recommendation of his PCP secondary to abnormal chest CAT scan. Over the past 2 weeks patient has been experiencing fever, productive purulent cough, THORNTON and conversational dyspnea. Overall appetite has been decreased and has approximately lost 10 pounds over the past 2 weeks. He denies any chills, sweats, lightheadedness, dizziness, chest pain, palpitations, hemoptysis, nausea, vomiting, abdominal pain, changes bowel or urinary habits. He initially was seen by PA at outpatient office. Symptoms initially felt to be secondary to viral and he was encouraged to use albuterol as needed. Albuterol does help temporarily. He then followed up with PCP and started on azithromycin for continued symptoms. He was scheduled for chest CT on 10/23 which revealed an ill-defined hypodense mass in the right middle lobe measuring 5 x 3.4 cm. Also adjacent large right middle lobe consolidation favoring infection. Mildly enlarged mediastinal and right hilar lymph nodes noted. He was then started on Levaquin and additionally Augmentin. Arlin did reach out to ask a doc pulmonology in [place]. Recommendation was for bronchoscopy however patient request to see [facility] pulmonology. Dr. Flores spoke with Dr. Ruvalcaba who recommended ED evaluation with admission. In ED patient remained hemodynamically stable saturating well on room air. H&H around 10.8 and 34.9 with decreased MCV and MCH concerning for macrocytosis, platelet count 599, WBC 6.16, K3.3, BUN 9, creatinine 1.06, glucose 151, lactate 2.7, troponin WNL and negative for influenza. Chest x-ray revealed stable to slightly increased infiltrate surrounding the right middle lobe mass concerning for postobstructive pneumonia. In ED he was started on IV vancomycin and Zosyn and received 1 L fluid bolus. Principal Diagnosis Right middle lobe pneumonia Abnormal CT scan s/p bronchoscopy Iron deficiency anemia Discharge Data Allergies Allergy/AdvReac Type Severity Reaction Status Date / Time No Known Allergies Allergy Unverified 10/28/19 11:56 Consultations 10/28/19 11:55 ED Decision to Admit Stat 10/28/19 12:15 Consult Pulmonology Routine Procedures Performed Operation Date: 10/29/19 11:00 Actual Procedures p Endobronchial Ultrasound (EBUS)(Bilateral) - Rakan Castle MD Hospital Course (1) Pneumonia: (2) Microcytic anemia: (3) Thrombocytosis: 53-year-old man with a lifelong non-smoker presented to the hospital after an episode of bronchitis 2 weeks prior to arrival. His symptoms included a fever and intermittent productive cough. Work-up included a CT of the chest on 10/23 which was performed as an outpatient by his primary care doctor. This revealed an ill-defined hypodense mass in the right middle lobe measuring 5 x 3.4 cm. Adjacent to this was a large right middle lobe pulmonary consolidation favoring infection with a trace right pleural effusion. Multiple mildly enlarged mediastinal and right hilar lymph nodes were noted, increased in size since the prior chest CT dated 05/25/2011 with differential including metastasis or reactive lymphadenopathy. He was admitted to the hospitalist service for concerns of postobstructive pneumonia and started on vancomycin and Zosyn. Pulmonology was consulted and bronchoscopy was recommended. On 10/28 he underwent a fiberoptic bronchoscopy with endobronchial ultrasound of a evaluation, transbronchial needle aspiration of lymph nodes, bronchoalveolar lavage. 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 Brushing and BAL of lateral segment of the right middle lobe with cytology and pathology was pending at the time of discharge with close primary care follow-up recommended to review results. Adenopathy was identified in multiple stations and successful biopsies were performed with pathology pending at the time of discharge. He was continued on Zosyn overnight to ensure no postprocedure complications and to administer an additional day of IV antibiotics. The following day he was oxygenating well on room air mentating and ambulating at baseline and hemodynamically stable. He had been afebrile for at least 24 hours prior to discharge. Physical exam revealed clear lungs to auscultation bilaterally and a well-appearing man. Close primary care and pulmonology follow-up was strongly recommended to ensure follow-up imaging with resolution of pneumonia and explanation of cytology and pathology results which were pending at the time of discharge. He was discharged on Augmentin to complete the course of antibiotics. Importantly, lab work revealed a persistent microcytic anemia as seen in his records since 2016. He is iron deficient and not on current supplementation which was started in the hospital. A 2016 screening colonoscopy was normal. In the setting of acid reflux on medication it may be prudent to follow-up with a gastroenterology follow-up questioning the need for an upper endoscopy at this time. Defer to primary care doctor for further work-up of this and possible referral to hematology. Total Time Total Time Spent Total Time Spent (In Minutes): 60 Total Time Includes: Examination of the Patient, Discharge Planning, Medication Reconciliation and Communication With Other Providers Discharge Plan Discharge Items Patient Disposition: Home - Self-Care Reason For Visit: RML MASS POSSIBLE POST OBSTRUCTIVE PNA Discharge Diagnosis: Right middle lobe pneumonia Abnormal CT scan s/p bronchoscopy Iron deficiency anemia Condition on Discharge: Good Activity: Resume your previous activity Non-emergency contact: Primary Care Provider Call non-emergency contact if: you have any medication questions, your symptoms worsen, your pain is not controlled, your pain is worsening, your pain is unusual for you, your pain is concerning for you and you have a fever Follow-up/Referrals: Rakan Castle MD [Physician] - Duncan Flores MD [Primary Care Provider] - 11/03/19 11:20 am Diet: Regular Addtl Attending Provider Instructions: Please take all medications as instructed on discharge list below. Please follow-up with Dr. Castle from [facility] [place] Pulmonology in the next 2-4 weeks to discuss the remaining results that are still pending from your bronchoscopy procedure Please follow-up with your primary care provider at the time/date above to ensure you are still doing well after going home, and to ensure you have been able to set up appropriate follow-up with Pulmonology. This appointment will also be important to readdress your persistent iron deficiency anemia. Please continue taking the iron supplementation as prescribed as your doctor will lik michelle recheck your levels in 6-8 weeks. Referral to a patient insurance clerk or back to see a revenue officer may be consisdered. Repeat imaging of your chest is recommended in 4-6 weeks is recommended to ensure complete resolution of your pneumonia. It was a pleasure taking care of you! Please call if you have any questions or problems. You can reach a [facility] hospitalist on duty at [facility] 24 hours a day by calling [phone]. Take care of yourself. Page Meadows, DO [facility] Pending Studies at Discharge: Yes Studies:: bronchoscopy studies including pathology results from biopsies Stand-Alone Forms: My [facility], Smoking Cessation Medications and DC Order Prescriptions: New ferrous sulfate 325 mg (65 mg iron) Tablet,Delayed Release (Dr/Ec) 325 mg PO BIDM Qty: 60 RF: 1 Continued cetirizine [Zyrtec] 10 mg Tablet 10 mg PO QAM RF: 0 theophylline 400 mg tablet extended release 24 hr 400 mg PO BID RF: 0 acetaminophen [Tylenol Extra Strength] 500 mg Tablet 500 mg PO Q6H PRN (Reason: Pain or Fever) RF: 0 omeprazole 20 mg capsule,delayed release(DR/EC) 20 mg PO QAM RF: 0 montelukast 10 mg tablet 10 mg PO QAM RF: 0 albuterol sulfate [Ventolin HFA] 90 mcg/actuation HFA aerosol inhaler 2 puff INHALATION QID PRN (Reason: Shortness Of Breath) RF: 0 Men's One Daily 400-20-300 mcg Tablet 1 tab PO QAM RF: 0 nortriptyline 10 mg capsule 10 mg PO HS RF: 0 Discontinued levofloxacin 750 mg tablet 750 mg PO QAM RF: 0 amoxicillin-pot clavulanate 875-125 mg tablet 1 tab PO BID RF: 0 No Action amoxicillin-pot clavulanate 875-125 mg tablet 1 tab PO BID Qty: 60 RF: 3 Discharge Orders: Discharge Order (Routine); Ordered 10/30/19 Ordered By: Page Meadows Admission Data Admit Date/Time: 10/28/19 12:15 Attending Provider: Pgae Meadows Admit Provider: Alexa Leger Primary Care Provider: Duncan Flores Other Providers: Alexa Leger ; Rakan Castle Other Interventions: Discharge Summary Assessment (RN) Last Done: 10/30/19 11:33 DC Date/Time DO NOT enter until pt leaves facility: 10/30/19 13:14
== END 2019-10-30 13:14 | disposition home or self-care (01) | DRG 167 ==
LOC: ED 10:56 → 2S 12:15 → SUATTDRO 12:15 → 2S 13:00 → 2W 10-29 14:36